=== PATIENT | female | born 1935 | race Two or more races ===

== ENCOUNTER 2021-10-23 21:56 | Emergency (ER) | payer MEDICARE, OTHER ==
[~2021-10-23] VITALS: Ht 165.1 cm; Wt 54.4 kg
[2021-10-23] MEDS ORDERED: ACETAMINOPHEN ES 500 MG TABLET ONE (22:52)
[2021-10-23] MEDS ORDERED: ACETAMINOPHEN ES 500 MG TABLET PO ONE (23:00)
[2021-10-23] MEDS ORDERED: ACET-2605 PO (23:45)
[2021-10-24] VITALS: BP 168/86
== END 2021-10-23 23:42 | disposition home or self-care (01) ==
LOC: ER 21:58
DX: R07.2 Precordial pain (principal); I10 Essential (primary) hypertension; K50.90 Crohn's disease, unspecified, without complications; E11.9 Type 2 diabetes mellitus without complications; Z90.49 Acquired absence of other specified parts of digestive tract; V89.2XXA Person injured in unspecified motor-vehicle accident, traffic, initial encounter; Y93.89 Activity, other specified; Y92.89 Other specified places as the place of occurrence of the external cause; Y99.8 Other external cause status
CPT/HCPCS: 70450-TC; 71250-TC; 72125-TC

== ENCOUNTER 2024-02-14 08:03 | Inpatient (IN) | payer MEDICARE, BC ==
[~2024-02-14] VITALS: Ht 165.1 cm; Wt 55.3 kg
[~2024-02-14 08:03] MED LIST: ACET-2605 PO
[2024-02-14 08:35] LABS: BASOPHILS % (AUTO) 0.1 % (0.0-2.0); EOSINOPHILS # (AUTO) 0.1 K/uL (0.0-0.7); EOSINOPHILS % (AUTO) 0.9 % (0.0-6.0); HEMATOCRIT 32 % (33-45); HEMOGLOBIN 10.5 g/dL (11.5-14.8); LYMPHOCYTES # (AUTO) 0.7 K/uL (0.8-4.8); MEAN CORPUSCULAR HEMOGLOBIN 28 PG (26.0-33.0); MEAN CORPUSCULAR HGB CONC 33 g/dl (31.0-36.0); MEAN CORPUSCULAR VOLUME 86 fL (82-100); MONOCYTES % (AUTO) 11.2 % (2.0-12.0); NEUTROPHILS # (AUTO) 7.1 K/uL (1.8-8.9); NEUTROPHILS % (AUTO) 79.8 % (43.0-81.0); PLATELET COUNT (AUTO) 228 K/uL (150-450); RED BLOOD CELL COUNT(AUTO) 3.72 MIL/uL (4.0-5.2); WHITE BLOOD COUNT (AUTO) 8.9 K/uL (4.3-11.0)
[2024-02-14 08:42] LABS: CALCIUM, SERUM 8.6 mg/dL (8.5-10.1); CARBON DIOXIDE 25 mmol/L (21-32); CHLORIDE 105 mmol/L (98-107); CREATININE 0.7 mg/dL (0.6-1.3); GLUCOSE 114 mg/dL (74-106); POTASSIUM 3.6 mmol/L (3.5-5.1); SODIUM SERUM 138 mmol/L (136-145); UREA NITROGEN, BLOOD 9 mg/dL (7-18)
[2024-02-14 08:48] LABS: ALANINE AMINOTRANSFERASE 10 U/L (12-78); ALBUMIN 1.8 g/dL (3.4-5.0); ALKALINE PHOSPHATASE 99 U/L (46-116); ASPARTATE AMINOTRANSFERASE 14 U/L (15-37); BILIRUBIN,DIRECT 0.2 mg/dL (0.0-0.2); BILIRUBIN,TOTAL 0.7 mg/dL (0.2-1.0); INR 1.13 (0.91-1.10); PARTIAL THROMBOPLASTIN TIME 39.2 SEC (24.3-34.3); PROTHROMBIN TIME 11.9 SECS (9.2-11.1); TOTAL PROTEIN, SERUM 5.8 g/dL (6.4-8.2)
[2024-02-14] MEDS ORDERED: TDAP [DIPH/PERTUSSIS/TET] 0.5 ML VIAL IM ONE (09:07)
[2024-02-14] MEDS ORDERED: BACI/NEOM/POLY B OINT PKT 1 UDPKT PACKET ONE (09:08)
[2024-02-14] MEDS: IV NS 0.9% 500 ML BAG IV ONE (09:09)
[2024-02-14] MEDS: BACI/NEOM/POLY B OINT PKT 1 UDPKT PACKET TP ONE (09:10)
[2024-02-14] MEDS: TDAP [DIPH/PERTUSSIS/TET] 0.5 ML VIAL IM ONE (09:13)
[2024-02-14] MEDS ORDERED: GABA-532 PO (09:29)
[2024-02-14] MEDS ORDERED: FOLI-85 PO (09:29)
[2024-02-14] MEDS ORDERED: VIT1CAPS9 PO (09:29)
[2024-02-14] MEDS ORDERED: MELA5TAB PO (09:29)
[2024-02-14] MEDS ORDERED: DONE5TAB34 PO (09:29)
[2024-02-14] MEDS ORDERED: CHOL100062 PO (09:29)
[2024-02-14] MEDS ORDERED: ATOR20TA PO (09:29)
[2024-02-14] MEDS ORDERED: PANT40TA2 PO (09:29)
[2024-02-14] MEDS ORDERED: ESCI20TA PO (09:29)
[2024-02-14] MEDS ORDERED: POLY17PO4 PO (09:29)
[2024-02-14] MEDS ORDERED: FLUT16SP16 BNOSTRILS (09:29)
[2024-02-14] MEDS ORDERED: ACET325T53 PO ×2 (09:29)
[2024-02-14] MEDS ORDERED: CYAN-51 PO (09:29)
[2024-02-14] MEDS ORDERED: CARV3.12 PO (09:29)
[2024-02-14] MEDS ORDERED: CALC-1257 PO (09:29)
[2024-02-14] MEDS ORDERED: DICL100G26 TP (09:29)
[2024-02-14 11:48] LABS: APPEARANCE,URINE CLEAR (CLEAR); BILIRUBIN,URINE NEGATIVE (NEGATIVE); BLOOD, URINE 2+ Ery/uL (NEGATIVE); COLOR,URINE YELLOW (YELLOW); KETONES,URINE NEGATIVE (NEGATIVE); LEUKOCYTE ESTERASE ,URINE 2+ (NEGATIVE); NITRITE, URINE NEGATIVE (NEGATIVE); PROTEIN,URINE NEGATIVE (NEGATIVE); UGLUCOSE NEGATIVE (NEGATIVE); UROBILINOGEN,URINE 0.2 EU/dL (0.2)
[2024-02-14 11:52] LABS: ADD URINE CULTURE YES; SQUAMOUS EPITHELIAL CELL,UR Rare /HPF (None Seen)
[2024-02-14 11:53] LABS: BACTERIA,URINE Few /HPF (None Seen)
[2024-02-14 16:07] VITALS: BP 134/63; TEMP 98.2; O2SAT 96
[2024-02-14] MEDS ORDERED: ACETAMINOPHEN 325 MG TABLET PO PRN (17:00)
[2024-02-14] MEDS ORDERED: FLUTICASONE PROPIONATE 16 GM BOTTLE NS PRN (17:00)
[2024-02-14] MEDS ORDERED: ONDANSETRON HCL/PF 4 MG/2 ML VIAL IVP PRN (17:00)
[2024-02-14] MEDS ORDERED: Z GUARD REMEDY 4 OZ OINT TP PRN (17:00)
[2024-02-14] MEDS: CARVEDILOL 3.125 MG TABLET PO SCH (17:09)
[2024-02-14] MEDS: IV NS 0.9% 1,000 ML IV PRN (17:20)
[2024-02-14] MEDS: ACIDOPHILUS/BULGARICUS 1 EACH TAB.CHEW PO SCH (17:30)
[2024-02-14] MEDS: CHOLESTYRAMINE/ASPARTAME 4 G/PKT PACKET PO SCH (17:31)
[2024-02-14] MEDS: CEPHALEXIN MONOHYDRATE 500 MG CAPSULE PO SCH (17:31)
[2024-02-14 20:00] VITALS: BP_SYST 113; BP_SYST 129; BP_DIAS 53; BP_DIAS 62; TEMP 98.1; O2SAT 95; O2SAT 97
[2024-02-14 20:42] LABS: THYROID STIMULATING HORMONE 2.252 uIU/mL (0.358-3.74)
[2024-02-14] MEDS: DONEPEZIL 5 MG TABLET PO SCH (21:09)
[2024-02-14] MEDS: GABAPENTIN 100 MG CAPSULE PO SCH (21:09)
[2024-02-14] MEDS: ATORVASTATIN 10 MG TABLET PO SCH (21:09)
[2024-02-14] MEDS: ENOXAPARIN SODIUM 40 MG/0.4 ML DISP.SYRIN SQ SCH (21:22)
[2024-02-15] VITALS (10 sets, daily range): BP systolic 117–141; BP diastolic 56–67; TEMP 97.3–98.4; O2SAT 93–98
[2024-02-15 06:36] LABS: BASOPHILS % (AUTO) 0.1 % (0.0-2.0); EOSINOPHILS # (AUTO) 0.1 K/uL (0.0-0.7); EOSINOPHILS % (AUTO) 1.7 % (0.0-6.0); HEMATOCRIT 30 % (33-45); HEMOGLOBIN 9.8 g/dL (11.5-14.8); LYMPHOCYTES # (AUTO) 0.6 K/uL (0.8-4.8); LYMPHOCYTES % (AUTO) 6.9 % (20.0-44.0); MEAN CORPUSCULAR HEMOGLOBIN 28 PG (26.0-33.0); MEAN CORPUSCULAR HGB CONC 33 g/dl (31.0-36.0); MEAN CORPUSCULAR VOLUME 85 fL (82-100); MONOCYTES # (AUTO) 0.9 K/uL (0.1-1.30); MONOCYTES % (AUTO) 10.7 % (2.0-12.0); NEUTROPHILS # (AUTO) 6.5 K/uL (1.8-8.9); NEUTROPHILS % (AUTO) 80.6 % (43.0-81.0); PLATELET COUNT (AUTO) 187 K/uL (150-450); RED CELL DISTRIBUTION WIDTH 14.1 % (11.5-15.0); WHITE BLOOD COUNT (AUTO) 8.1 K/uL (4.3-11.0)
[2024-02-15 06:53] LABS: CARBON DIOXIDE 25 mmol/L (21-32); CHLORIDE 106 mmol/L (98-107); CREATININE 0.4 mg/dL (0.6-1.3); GLUCOSE 96 mg/dL (74-106); MAGNESIUM 1.9 mg/dL (1.8-2.4); PHOSPHORUS 2.8 mg/dL (2.5-4.9); POTASSIUM 3.2 mmol/L (3.5-5.1); SODIUM SERUM 138 mmol/L (136-145); UREA NITROGEN, BLOOD 6 mg/dL (7-18)
[2024-02-15 06:55] LABS: CHOLESTEROL 60 mg/dL (<200); HDL CHOLESTEROL 27 mg/dL (40-60); LDL 33 mg/dL (0-99); TRIGLYCERIDES 80 mg/dL (30-150)
[2024-02-15] MEDS: PANTOPRAZOLE 40 MG TABLET.DR PO SCH (08:29)
[2024-02-15] MEDS: ESCITALOPRAM OXALATE (10 MG) 10 MG TABLET PO SCH (08:29)
[2024-02-15] MEDS: POTASSIUM CHLORIDE 20 MEQ TAB.PRT.SR PO SCH (09:20)
[2024-02-15] MEDS: SOD FERRIC GLUC 125 MG in IV NS 0.9% 100 ML IV SCH (14:23)
[2024-02-16 00:21] VITALS: BP 138/62; TEMP 98.2; O2SAT 92
[2024-02-16 01:11] VITALS: O2SAT 94
[2024-02-16 03:57] VITALS: BP 140/70; TEMP 97.3; O2SAT 92
[2024-02-16 04:09] VITALS: BP 140/70; TEMP 97.3; O2SAT 92
[2024-02-16 07:14] LABS: CALCIUM, SERUM 8.2 mg/dL (8.5-10.1); CARBON DIOXIDE 25 mmol/L (21-32); CHLORIDE 106 mmol/L (98-107); CREATININE 0.5 mg/dL (0.6-1.3); GLUCOSE 84 mg/dL (74-106); POTASSIUM 3.4 mmol/L (3.5-5.1); SODIUM SERUM 138 mmol/L (136-145); UREA NITROGEN, BLOOD 5 mg/dL (7-18)
[2024-02-16 07:30] VITALS: BP 135/69; TEMP 98.2; O2SAT 90
[2024-02-16 08:57] VITALS: BP 135/69
[2024-02-16 09:07] LABS: C-REACTIVE PROTEIN, QUANT 53 mg/L (0-10)
[2024-02-16] MEDS: POTASSIUM CHLORIDE 20 MEQ TAB.PRT.SR PO SCH (10:05)
[2024-02-16] MEDS ORDERED: CEPH-570 PO (14:05)
[2024-02-16] MEDS ORDERED: CHOL4PAC4 PO (14:05)
[2024-02-16] MEDS ORDERED: FERR325T24 PO (14:05)
[2024-02-17 12:07] LABS: *ANA ANTI-CENTROMERE B AB <0.2 AI (0.0-0.9); *ANA ANTI-DNA(DS) AB, QN <1 IU/mL (0-9); *ANA ANTI-JO-1 <0.2 AI (0.0-0.9); *ANA ANTICHROMATIN ANTIBODY <0.2 AI (0.0-0.9); *ANA RNP ANTIBODIES <0.2 AI (0.0-0.9); *ANA SJOGREN'S ANTI-SS-A <0.2 AI (0.0-0.9); *ANA SJOGREN'S ANTI-SS-B <0.2 AI (0.0-0.9); *ANAANTI-SCLERODERMA-70 AB <0.2 AI (0.0-0.9); *ANASMITH AB <0.2 AI (0.0-0.9)
[2024-02-18 09:12] LABS: *SPE A/G RATIO 0.7 (0.7-1.7); *SPE ALPHA-1-GLOBULIN 0.4 g/dL (0.0-0.4); *SPE ALPHA-2-GLOBULIN 0.8 g/dL (0.4-1.0); *SPE BETA GLOBULIN 0.7 g/dL (0.7-1.3); *SPE GLOBULIN, TOTAL 2.9 g/dL (2.2-3.9); *SPE M-SPIKE Not Observed g/dL (Not Observed); *SPE PROTEIN TOTAL 4.9 g/dL (6.0-8.5); *SPEGAMMA GLOBULIN 1.1 g/dL (0.4-1.8)
== END 2024-02-16 16:45 | disposition hospice, home (50) | DRG 641 ==
LOC: ER 08:21 → TELE 11:54
PROVIDERS: ADMIT Nurse Practitioner Acute Care; ATTEND Nurse Practitioner Acute Care
DX: E86.0 Dehydration (principal); N39.0 Urinary tract infection, site not specified; K50.90 Crohn's disease, unspecified, without complications; J98.11 Atelectasis; E46 Unspecified protein-calorie malnutrition; F03.93 Unspecified dementia, unspecified severity, with mood disturbance; S01.81XA Laceration without foreign body of other part of head, initial encounter; R62.7 Adult failure to thrive; Z68.20 Body mass index [BMI] 20.0-20.9, adult; E11.40 Type 2 diabetes mellitus with diabetic neuropathy, unspecified; E78.5 Hyperlipidemia, unspecified; F32.A Depression, unspecified; J32.9 Chronic sinusitis, unspecified; K21.9 Gastro-esophageal reflux disease without esophagitis; Z90.49 Acquired absence of other specified parts of digestive tract; I10 Essential (primary) hypertension; Z86.19 Personal history of other infectious and parasitic diseases; M19.90 Unspecified osteoarthritis, unspecified site; W01.0XXA Fall on same level from slipping, tripping and stumbling without subsequent striking against object, initial encounter; Y93.9 Activity, unspecified; Y92.89 Other specified places as the place of occurrence of the external cause; D50.9 Iron deficiency anemia, unspecified; B96.20 Unspecified Escherichia coli [E. coli] as the cause of diseases classified elsewhere
CPT/HCPCS: 36415; 70450-TC; 71045-TC; 80048-TC; 80061-TC; 80076-TC; 81001; 82962-TC; 83540-TC; 83735-TC; 84100-TC; 84155; 84165; 84443-TC; 84484-TC; 85025-TC; 85652-TC; 85730-TC; 86140; 86225; 86235; 87086-TC; 89055; 90715; 93307-TC; 94799-TC; 97112-TC; 97116-TC; 97530-TC; A6403; G0378; J1650; J2916; J7030

== ENCOUNTER 2024-04-07 10:52 | Inpatient (IN) | payer MEDICARE, BC ==
[~2024-04-07] VITALS: Ht 167.6 cm; Wt 56.7 kg
[~2024-04-07 10:52] MED LIST changes: -ACET-2605 PO; +ACET325T53 PO; +ATOR20TA PO; +CALC-1257 PO; +CARV3.12 PO; +CEPH-570 PO; +CHOL100062 PO; +CHOL4PAC4 PO; +CYAN-51 PO; +DICL100G26 TP; +DONE5TAB34 PO; +ESCI20TA PO; +FERR325T24 PO; +FLUT16SP16 BNOSTRILS; +FOLI-85 PO; +GABA-532 PO; +MELA5TAB PO; +PANT40TA2 PO; +POLY17PO4 PO; +VIT1CAPS9 PO
[2024-04-07 12:09] LABS: BASOPHILS % (AUTO) 0.1 % (0.0-2.0); HEMATOCRIT 33 % (33-45); HEMOGLOBIN 10.9 g/dL (11.5-14.8); LYMPHOCYTES # (AUTO) 0.5 K/uL (0.8-4.8); LYMPHOCYTES % (AUTO) 4.2 % (20.0-44.0); MEAN CORPUSCULAR HEMOGLOBIN 28 PG (26.0-33.0); MEAN CORPUSCULAR HGB CONC 33 g/dl (31.0-36.0); MEAN CORPUSCULAR VOLUME 84 fL (82-100); MONOCYTES # (AUTO) 0.8 K/uL (0.1-1.30); MONOCYTES % (AUTO) 7.1 % (2.0-12.0); NEUTROPHILS # (AUTO) 9.4 K/uL (1.8-8.9); NEUTROPHILS % (AUTO) 88.6 % (43.0-81.0); PLATELET COUNT (AUTO) 227 K/uL (150-450); RED BLOOD CELL COUNT(AUTO) 3.92 MIL/uL (4.0-5.2); RED CELL DISTRIBUTION WIDTH 15.3 % (11.5-15.0); WHITE BLOOD COUNT (AUTO) 10.7 K/uL (4.3-11.0)
[2024-04-07 12:18] LABS: CALCIUM, SERUM 8.4 mg/dL (8.5-10.1); CARBON DIOXIDE 31 mmol/L (21-32); CHLORIDE 102 mmol/L (98-107); CREATININE 0.8 mg/dL (0.6-1.3); GLUCOSE 134 mg/dL (74-106); POTASSIUM 3.8 mmol/L (3.5-5.1); SODIUM SERUM 133 mmol/L (136-145); UREA NITROGEN, BLOOD 13 mg/dL (7-18)
[2024-04-07 12:21] LABS: INR 1.2 (0.91-1.10); PARTIAL THROMBOPLASTIN TIME 38.4 SEC (24.3-34.3); PROTHROMBIN TIME 12.3 SECS (9.2-11.1)
[2024-04-07 12:24] LABS: ALANINE AMINOTRANSFERASE 19 U/L (12-78); ALBUMIN 1.6 g/dL (3.4-5.0); ALKALINE PHOSPHATASE 120 U/L (46-116); ASPARTATE AMINOTRANSFERASE 19 U/L (15-37); BILIRUBIN,DIRECT 0.3 mg/dL (0.0-0.2); BILIRUBIN,TOTAL 0.8 mg/dL (0.2-1.0); TOTAL PROTEIN, SERUM 5.8 g/dL (6.4-8.2)
[2024-04-07] MEDS ORDERED: CARB15DR12 EACH EAR (14:19)
[2024-04-07] MEDS ORDERED: ERYT3.5O9 EACHEYE (14:19)
[2024-04-07] MEDS ORDERED: IBUP-76 PO (14:19)
[2024-04-07] MEDS ORDERED: MESA10007 RC (14:19)
[2024-04-07] MEDS ORDERED: ESCI10TA PO (14:19)
[2024-04-07] MEDS ORDERED: Z GUARD REMEDY 4 OZ OINT TP PRN (17:00)
[2024-04-07] MEDS ORDERED: ACETAMINOPHEN 325 MG TABLET PO PRN (17:00)
[2024-04-07] MEDS ORDERED: MAGNESIUM HYDROXIDE 30 ML UDC PO PRN (17:00)
[2024-04-07] MEDS ORDERED: ONDANSETRON HCL/PF 4 MG/2 ML VIAL IVP PRN (17:00)
[2024-04-07] MEDS: HYDROCODONE/APAP 5/325MG TABLET PO PRN (17:40)
[2024-04-07] MEDS: CARVEDILOL 3.125 MG TABLET PO SCH (17:41)
[2024-04-07 18:00] VITALS: BP 113/67; TEMP 98.4; O2SAT 94
[2024-04-07] MEDS ORDERED: SOD FERRIC GLUC 125 MG in IV NS 0.9% 100 ML IV SCH (18:00)
[2024-04-07] MEDS ORDERED: IOHEXOL-300 100 ML VIAL IV ONE (18:02)
[2024-04-07] MEDS ORDERED: IV NS 0.9% 250 ML IV ONE (18:03)
[2024-04-07] MEDS: ERYTHROMYCIN BASE OPHTH 3.5 GM TUBE EACHEYE SCH (18:40)
[2024-04-07] MEDS: IV NS 0.9% 1,000 ML IV PRN (18:41)
[2024-04-07 20:00] VITALS: BP 132/59; TEMP 98.2; O2SAT 92
[2024-04-07] MEDS: SOD FERRIC GLUC 125 MG in IV NS 0.9% 100 ML IV SCH (20:53)
[2024-04-07] MEDS: GABAPENTIN 100 MG CAPSULE PO SCH (21:32)
[2024-04-07] MEDS: ATORVASTATIN 10 MG TABLET PO SCH (21:33)
[2024-04-07 22:08] LABS: APPEARANCE,URINE CLEAR (CLEAR); BILIRUBIN,URINE NEGATIVE (NEGATIVE); BLOOD, URINE 1+ Ery/uL (NEGATIVE); COLOR,URINE YELLOW (YELLOW); KETONES,URINE 1+ mg/dL (NEGATIVE); LEUKOCYTE ESTERASE ,URINE TRACE (NEGATIVE); NITRITE, URINE NEGATIVE (NEGATIVE); PROTEIN,URINE TRACE mg/dl (NEGATIVE); UGLUCOSE NEGATIVE (NEGATIVE); UROBILINOGEN,URINE 0.2 EU/dL (0.2)
[2024-04-07 22:19] LABS: ADD URINE CULTURE NO; BACTERIA,URINE Rare /HPF (None Seen); WBC,URINE 0-2 /HPF (0-3)
[2024-04-07 22:20] LABS: CALCIUM OXALATE CRYSTALS,UR Rare /HPF (None Seen); MUCUS,URINE Few /LPF (None Seen)
[2024-04-08 03:45] LABS: EOSINOPHILS % (AUTO) 0.1 % (0.0-6.0); HEMATOCRIT 34 % (33-45); HEMOGLOBIN 11.2 g/dL (11.5-14.8); LYMPHOCYTES # (AUTO) 0.4 K/uL (0.8-4.8); LYMPHOCYTES % (AUTO) 3.6 % (20.0-44.0); MEAN CORPUSCULAR HEMOGLOBIN 28 PG (26.0-33.0); MEAN CORPUSCULAR HGB CONC 33 g/dl (31.0-36.0); MEAN CORPUSCULAR VOLUME 84 fL (82-100); MONOCYTES % (AUTO) 8.5 % (2.0-12.0); NEUTROPHILS # (AUTO) 10.5 K/uL (1.8-8.9); NEUTROPHILS % (AUTO) 87.8 % (43.0-81.0); PLATELET COUNT (AUTO) 226 K/uL (150-450); RED BLOOD CELL COUNT(AUTO) 4.05 MIL/uL (4.0-5.2); RED CELL DISTRIBUTION WIDTH 15.2 % (11.5-15.0)
[2024-04-08 03:55] LABS: CALCIUM, SERUM 8.1 mg/dL (8.5-10.1); CARBON DIOXIDE 26 mmol/L (21-32); CHLORIDE 104 mmol/L (98-107); CREATININE 0.6 mg/dL (0.6-1.3); GLUCOSE 115 mg/dL (74-106); MAGNESIUM 2.1 mg/dL (1.8-2.4); PHOSPHORUS 3.8 mg/dL (2.5-4.9); POTASSIUM 3.8 mmol/L (3.5-5.1); SODIUM SERUM 139 mmol/L (136-145); UREA NITROGEN, BLOOD 10 mg/dL (7-18)
[2024-04-08 04:00] VITALS: BP 128/92; TEMP 97.5; O2SAT 95
[2024-04-08 05:02] LABS: INR 1.18 (0.91-1.10); PROTHROMBIN TIME 12.4 SECS (9.2-11.1)
[2024-04-08] MEDS ORDERED: POLYMYXIN B SULFATE 0 UNITS ONE (07:24)
[2024-04-08] MEDS ORDERED: VANCOMYCIN 1 GM VIAL ONE (07:24)
[2024-04-08] MEDS ORDERED: BUPIVACAINE 0.5 % PF 150 MG/30 ML VIAL ONE (07:24)
[2024-04-08] MEDS: PANTOPRAZOLE 40 MG TABLET.DR PO SCH (07:30)
[2024-04-08] MEDS: ESCITALOPRAM OXALATE (10 MG) 10 MG TABLET PO SCH (07:57)
[2024-04-08] MEDS: CALCIUM CARB 600MG /VIT D 1 EACH TABLET PO SCH (07:57)
[2024-04-08] MEDS: CYANOCOBALAMIN 500 MCG TABLET PO SCH (07:58)
[2024-04-08] MEDS: CHOLECALCIFEROL 1,000 UNIT TABLET (VIT D3) PO SCH (07:58)
[2024-04-08 08:00] VITALS: BP 146/71; TEMP 97.5; O2SAT 93
[2024-04-08] MEDS ORDERED: FENTANYL PF 100MCG/2ML AMPUL ONE (08:25)
[2024-04-08] MEDS: CARBAMIDE PEROXIDE OTIC 15 ML BOTTLE EACH EAR SCH (09:00)
[2024-04-08] MEDS ORDERED: MORPHINE SULFATE INJ 2 MG/ML DISP.SYRIN IM PRN (10:30)
[2024-04-08] MEDS: IV D5/0.45 NACL W/20 MEQ KCL 1L IV PRN (11:18)
[2024-04-08] MEDS: HYDROCODONE/APAP 10/325MG TABLET PO PRN (14:41)
[2024-04-08 16:00] VITALS: BP 104/59; TEMP 97.5; O2SAT 94
[2024-04-08 16:51] LABS: HEMOGLOBIN 10.4 g/dL (11.5-14.8)
[2024-04-08] MEDS: ANCEF 1 GM/50 ML D5W IV SCH (17:07)
[2024-04-08 20:09] VITALS: O2SAT 94
[2024-04-08 20:11] VITALS: O2SAT 94
[2024-04-08] MEDS: ENOXAPARIN SODIUM 40 MG/0.4 ML DISP.SYRIN SQ SCH (21:32)
[2024-04-08] MEDS: IV D5/0.45 NACL W/20 MEQ KCL 1L IV SCH (23:31)
[2024-04-09 04:00] VITALS: BP 124/65; TEMP 97.5; O2SAT 95
[2024-04-09 06:40] LABS: CALCIUM, SERUM 8.2 mg/dL (8.5-10.1); CARBON DIOXIDE 29 mmol/L (21-32); CHLORIDE 109 mmol/L (98-107); CREATININE 0.7 mg/dL (0.6-1.3); EOSINOPHILS % (AUTO) 0.4 % (0.0-6.0); GLUCOSE 102 mg/dL (74-106); HEMATOCRIT 31 % (33-45); HEMOGLOBIN 9.9 g/dL (11.5-14.8); LYMPHOCYTES # (AUTO) 0.7 K/uL (0.8-4.8); LYMPHOCYTES % (AUTO) 5.5 % (20.0-44.0); MAGNESIUM 2.2 mg/dL (1.8-2.4); MEAN CORPUSCULAR HEMOGLOBIN 28 PG (26.0-33.0); MEAN CORPUSCULAR HGB CONC 32 g/dl (31.0-36.0); MEAN CORPUSCULAR VOLUME 86 fL (82-100); MONOCYTES # (AUTO) 1.3 K/uL (0.1-1.30); MONOCYTES % (AUTO) 10.2 % (2.0-12.0); NEUTROPHILS # (AUTO) 10.6 K/uL (1.8-8.9); NEUTROPHILS % (AUTO) 83.9 % (43.0-81.0); PLATELET COUNT (AUTO) 260 K/uL (150-450); POTASSIUM 4.9 mmol/L (3.5-5.1); RED BLOOD CELL COUNT(AUTO) 3.59 MIL/uL (4.0-5.2); RED CELL DISTRIBUTION WIDTH 15.8 % (11.5-15.0); SODIUM SERUM 140 mmol/L (136-145); UREA NITROGEN, BLOOD 10 mg/dL (7-18); WHITE BLOOD COUNT (AUTO) 12.6 K/uL (4.3-11.0)
[2024-04-09 08:00] VITALS: BP 126/72; TEMP 97.7; O2SAT 96
[2024-04-09] MEDS: NEUTRA PHOS 1 POWD.PACKET PO ONE (09:37)
[2024-04-09] MEDS: IV D5/0.45 NACL 1,000 ML IV SCH (11:19)
[2024-04-09 12:00] VITALS: BP 112/68; TEMP 97.9; O2SAT 96
[2024-04-09] MEDS: ENSURE ENLIVE CHOC 237 ML CAN PO SCH (12:13)
[2024-04-09] MEDS ORDERED: SOD FERRIC GLUC 125 MG in IV NS 0.9% 100 ML IV SCH (14:00)
[2024-04-09] MEDS: POLYETHYLENE GLYCOL 3350 17 GM POWD.PACK PO PRN (14:09)
[2024-04-09 16:45] VITALS: BP 112/68; TEMP 97.9; O2SAT 96
[2024-04-09 20:00] VITALS: BP 112/52; TEMP 98.8; O2SAT 93
[2024-04-10 04:00] VITALS: BP 112/52; TEMP 98.8; O2SAT 93
[2024-04-10 06:08] LABS: BASOPHILS % (AUTO) 0.1 % (0.0-2.0); EOSINOPHILS # (AUTO) 0.1 K/uL (0.0-0.7); EOSINOPHILS % (AUTO) 0.8 % (0.0-6.0); HEMATOCRIT 31 % (33-45); LYMPHOCYTES # (AUTO) 0.9 K/uL (0.8-4.8); LYMPHOCYTES % (AUTO) 7.5 % (20.0-44.0); MEAN CORPUSCULAR HEMOGLOBIN 28 PG (26.0-33.0); MEAN CORPUSCULAR HGB CONC 33 g/dl (31.0-36.0); MEAN CORPUSCULAR VOLUME 86 fL (82-100); MONOCYTES % (AUTO) 9.1 % (2.0-12.0); NEUTROPHILS # (AUTO) 9.4 K/uL (1.8-8.9); NEUTROPHILS % (AUTO) 82.5 % (43.0-81.0); PLATELET COUNT (AUTO) 231 K/uL (150-450); RED BLOOD CELL COUNT(AUTO) 3.59 MIL/uL (4.0-5.2); RED CELL DISTRIBUTION WIDTH 15.7 % (11.5-15.0); WHITE BLOOD COUNT (AUTO) 11.4 K/uL (4.3-11.0)
[2024-04-10 08:44] VITALS: O2SAT 96
[2024-04-10] MEDS ORDERED: LACT-54 PO (09:58)
[2024-04-10] MEDS ORDERED: HYDR-3980 PO (09:58)
[2024-04-10] MEDS ORDERED: ENOX40DI SQ (09:58)
[2024-04-10] MEDS: NEUTRA PHOS 1 POWD.PACKET PO ONE (10:13)
[2024-04-10 16:00] VITALS: BP 129/72; TEMP 98.2; O2SAT 96
[2024-04-10 16:36] VITALS: BP 130/72
== END 2024-04-10 20:18 | DRG 521 ==
LOC: ER 10:58 → MEDSG1 14:47 → TELE1 17:02 → MEDSG1 04-08 08:29
PROVIDERS: ADMIT Nurse Practitioner Family; ATTEND Nurse Practitioner Acute Care
PROC: 05HC33Z Insertion of Infusion Device into Left Basilic Vein, Percutaneous Approach (ICD-10-PCS; 2024-04-07)
PROC: B54NZZA Ultrasonography of Left Upper Extremity Veins, Guidance (ICD-10-PCS; 2024-04-07)
PROC: 0SRS0JA Replacement of Left Hip Joint, Femoral Surface with Synthetic Substitute, Uncemented, Open Approach (ICD-10-PCS; principal; 2024-04-08)
DX: S72.002A Fracture of unspecified part of neck of left femur, initial encounter for closed fracture (principal); E43 Unspecified severe protein-calorie malnutrition; G93.41 Metabolic encephalopathy; E87.1 Hypo-osmolality and hyponatremia; F03.93 Unspecified dementia, unspecified severity, with mood disturbance; I50.32 Chronic diastolic (congestive) heart failure; W19.XXXA Unspecified fall, initial encounter; I11.0 Hypertensive heart disease with heart failure; D72.829 Elevated white blood cell count, unspecified; D64.9 Anemia, unspecified; E88.09 Other disorders of plasma-protein metabolism, not elsewhere classified; E78.5 Hyperlipidemia, unspecified; F32.A Depression, unspecified; R55 Syncope and collapse; K52.3 Indeterminate colitis; Z68.20 Body mass index [BMI] 20.0-20.9, adult; Y93.9 Activity, unspecified; Y92.89 Other specified places as the place of occurrence of the external cause; M19.90 Unspecified osteoarthritis, unspecified site; E11.9 Type 2 diabetes mellitus without complications
CPT/HCPCS: 36410; 36415; 70450-TC; 71045-TC; 71260-TC; 72125-TC; 72192-TC; 73502; 80048-TC; 80076-TC; 81001; 83735-TC; 84100-TC; 84484-TC; 85025-TC; 85027-TC; 85610-TC; 85730-TC; 86850-TC; 94799-TC; 97110-TC; 97116-TC; 97530-TC; A4223; A6209; C1776; G0378; J0330; J0690; J1100; J1650; J2405; J2704; J2916; J3010; J3370; J3480; J3490; J7030; J7050; J7060; Q9967

== ENCOUNTER 2024-05-05 08:25 | Emergency (ER) | payer MEDICARE, BC ==
[~2024-05-05] VITALS: Ht 162.6 cm; Wt 63.5 kg
[~2024-05-05 08:25] MED LIST changes: +CARB15DR12 EACH EAR; -CEPH-570 PO; -CHOL4PAC4 PO; -DONE5TAB34 PO; +ENOX40DI SQ; +ERYT3.5O9 EACHEYE; +ESCI10TA PO; -ESCI20TA PO; -FERR325T24 PO; +HYDR-3980 PO; +IBUP-76 PO; +LACT-54 PO; +MESA10007 RC
[2024-05-05] MEDS ORDERED: LIDOCAINE 1%-EPI 1:100,000 20 ML VIAL ONE (08:59)
[2024-05-05] MEDS: IV NS 0.9% 500 ML BAG IV ONE (09:10)
[2024-05-05] MEDS: CEFAZOLIN 1 GM in IV D5W 50 ML IV ONE (09:10)
[2024-05-05] MEDS: LIDOCAINE 1%-EPI 1:100,000 50 ML VIAL IJ ONE (09:14)
[2024-05-05 09:15] LABS: BASOPHILS % (AUTO) 0.6 % (0.0-2.0); EOSINOPHILS # (AUTO) 0.1 K/uL (0.0-0.7); EOSINOPHILS % (AUTO) 2.3 % (0.0-6.0); HEMATOCRIT 29 % (33-45); HEMOGLOBIN 9.7 g/dL (11.5-14.8); LYMPHOCYTES # (AUTO) 0.6 K/uL (0.8-4.8); LYMPHOCYTES % (AUTO) 9.4 % (20.0-44.0); MEAN CORPUSCULAR HEMOGLOBIN 30 PG (26.0-33.0); MEAN CORPUSCULAR HGB CONC 33 g/dl (31.0-36.0); MEAN CORPUSCULAR VOLUME 89 fL (82-100); MONOCYTES # (AUTO) 0.5 K/uL (0.1-1.30); MONOCYTES % (AUTO) 8.8 % (2.0-12.0); NEUTROPHILS # (AUTO) 4.9 K/uL (1.8-8.9); NEUTROPHILS % (AUTO) 78.9 % (43.0-81.0); PLATELET COUNT (AUTO) 244 K/uL (150-450); RED BLOOD CELL COUNT(AUTO) 3.26 MIL/uL (4.0-5.2); WHITE BLOOD COUNT (AUTO) 6.3 K/uL (4.3-11.0)
[2024-05-05 09:25] LABS: CALCIUM, SERUM 8.9 mg/dL (8.5-10.1); CARBON DIOXIDE 27 mmol/L (21-32); CHLORIDE 107 mmol/L (98-107); CREATININE 0.5 mg/dL (0.6-1.3); GLUCOSE 105 mg/dL (74-106); POTASSIUM 3.6 mmol/L (3.5-5.1); SODIUM SERUM 143 mmol/L (136-145); UREA NITROGEN, BLOOD 12 mg/dL (7-18)
[2024-05-05] MEDS ORDERED: CEPH-570 PO (11:51)
[2024-05-05 13:10] VITALS: BP 141/64; TEMP 98.4; O2SAT 95
== END 2024-05-05 13:11 | disposition home or self-care (01) ==
LOC: ER 08:27
DX: T81.30XA Disruption of wound, unspecified, initial encounter (principal); F03.90 Unspecified dementia, unspecified severity, without behavioral disturbance, psychotic disturbance, mood disturbance, and anxiety; I10 Essential (primary) hypertension; E11.9 Type 2 diabetes mellitus without complications; Z86.79 Personal history of other diseases of the circulatory system; Z87.19 Personal history of other diseases of the digestive system; Z86.59 Personal history of other mental and behavioral disorders; W18.11XA Fall from or off toilet without subsequent striking against object, initial encounter; Y93.89 Activity, other specified; Y92.89 Other specified places as the place of occurrence of the external cause; Y99.8 Other external cause status
CPT/HCPCS: 12004; 36415; 70450; 73503; 80048; 85025; 96365; 99285; A4223; A6403; J0690; J3490; J7040; J7060; 73502

== ENCOUNTER 2024-05-15 12:44 | Emergency (ER) | payer MEDICARE, BC ==
[~2024-05-15] VITALS: Ht 162.6 cm; Wt 63.5 kg
[~2024-05-15 12:44] MED LIST changes: +CEPH-570 PO
[2024-05-15 15:24] VITALS: BP 122/68; TEMP 98.6; O2SAT 96
== END 2024-05-15 15:15 | disposition home or self-care (01) ==
LOC: ER 12:49
DX: T81.31XA Disruption of external operation (surgical) wound, not elsewhere classified, initial encounter (principal); I10 Essential (primary) hypertension; E11.9 Type 2 diabetes mellitus without complications

== ENCOUNTER 2024-05-18 10:44 | Emergency (ER) | payer MEDICARE, BC ==
[~2024-05-18] VITALS: Ht 162.6 cm; Wt 64.4 kg
[2024-05-18 11:42] VITALS: BP 120/67; TEMP 97.5; O2SAT 95
== END 2024-05-18 11:42 ==
LOC: ER 10:46
DX: T81.31XD Disruption of external operation (surgical) wound, not elsewhere classified, subsequent encounter (principal); I10 Essential (primary) hypertension; X58.XXXD Exposure to other specified factors, subsequent encounter